=== PATIENT | female | born 1985 | race Caucasian/White ===

== ENCOUNTER 2018-10-02 22:56 | Emergency (ER) | payer MEDICAID, OTHER ==
[~2018-10-02] VITALS: Ht 167.6 cm; Wt 72.4 kg
[2018-10-03 09:01] VITALS: BP 109/73
== END 2018-10-03 12:07 | disposition left against medical advice (07) ==
LOC: ER 22:56
DX: Z53.21 Procedure and treatment not carried out due to patient leaving prior to being seen by health care provider (principal); E11.9 Type 2 diabetes mellitus without complications; F17.200 Nicotine dependence, unspecified, uncomplicated; Z98.51 Tubal ligation status